=== PATIENT | male | born 2000 | race Caucasian/White ===

== ENCOUNTER 2024-12-05 00:08 | Emergency (ER) | payer MEDICAID, SELFPAY ==
[2024-12-05] VITALS (10 sets, daily range): BP systolic 124–162; BP diastolic 73–99; PULSE 61–84; RESP 13–18; TEMP 36.6; O2SAT 96–99; BMI 34.4
--- NOTE | 2024-12-05 00:07 | ECG_ITS ---
APPROVED REPORT Exam: Resting ECG HR:79 bpm ECG Measurements Heart Rate 79 AXES CA 215 P 40 QRSd 105 QRS 28 QT 349 T 33 QTc 384 Conclusion SINUS RHYTHM WITH FIRST DEGREE AV BLOCK No STEMI Electronically signed by : KARRIE MARK, 12/05/2024 04:23:23
--- NOTE | 2024-12-05 00:16 | XR_ITS ---
PROCEDURE INFORMATION: Exam: XR Chest Exam date and time: 12/05/2024 12:11 AM Age: 24 years old Clinical indication: Pain; Chest pressure; Additional info: Cp TECHNIQUE: Imaging protocol: Radiologic exam of the chest. Views: 2 views. COMPARISON: No relevant prior studies available. FINDINGS: Lungs: Minimal ill-defined bibasilar opacities. Pleural spaces: No pleural effusion. No pneumothorax. Heart/Mediastinum: No cardiomegaly. Bones/joints: Unremarkable. IMPRESSION: Minimal ill-defined bibasilar opacities, which may represent atelectasis, although aspiration/pneumonia can not be excluded
[2024-12-05 00:22] LABS: Hematocrit 42.7 % (42.0-52.0); Hemoglobin 14.7 g/dL (14.1-18.0); Immature Granulocytes % 0.4 %; Mean Corpuscular HGB Conc 34.4 g/dL (31.8-35.4); Mean Corpuscular Hemoglobin 31.6 pg (27.0-31.2); Mean Corpuscular Volume 91.8 fl (80-94); Nucleated Red Blood Cells % 0 %; Platelet Count 241 K/mm3 (142-424); Red Blood Count 4.65 M/mm3 (4.60-6.20); Red Cell Distribution Width-SD 41.9 fL; White Blood Count 8.3 K/mm3 (4.8-10.8)
[2024-12-05 00:23] LABS: Albumin Level 4.7 g/dl (3.5-5.0); Chloride 104 mmol/L (98-107)
[2024-12-05 00:24] LABS: Potassium 3.9 mmoL/L (3.5-5.1); Sodium 142 mmol/L (136-145)
[2024-12-05 00:26] LABS: Blood Urea Nitrogen 15 mg/dl (9-20); Creatinine Clearance Estimated 177 mL/min (50-200); Creatinine,Serum 0.90 mg/dl (0.66-1.25); Estimated Glomerular Filt Rate 103 ml/min (>60); GFR (African American) 124 ML/MIN (>60)
[2024-12-05 00:27] LABS: Alanine Aminotransferase 64 U/L (12-78); Albumin/Globulin Ratio 1.5 (1.1-1.8); Alkaline Phosphatase 56 U/L (38-126); Anion Gap 11.9 mEq/L (5-15); Aspartate Amino Transferase 30 U/L (17-59); Calcium 9.8 mg/dl (8.4-10.2); Carbon Dioxide 30 mmol/L (22.0-30.0); Globulin 3.1 g/dL (1.3-3.2); Glucose 102 mg/dl (74-100); Total Protein,Serum 7.8 g/dl (6.3-8.2)
[2024-12-05 00:29] LABS: INR 0.98 (0.9-1.1); Prothrombin Time 10.9 seconds (10.1-12.5)
--- OUTSIDE RECORDS SUMMARY | 2024-12-05 00:29 | XMS_ITS | Referral Summary ---
Author Organization [employer] ([place], [place], [place], [place]) Address [address] [place] [address] Care Team Providers Care Assistant Distribution Manager Name Role Phone Unavailable Primary Care Provider Unavailabl e Allergies No known active allergies Medications No known medications Active Problems Problem Noted Date Diagnosed Date Chest pain, unspecified type 03/04/2024 Social History Tobacco Use Types Packs/Day Years Used Date Smoking Tobacco: Every Day Cigarettes Smokeless Tobacco: Never Tobacco Cessation:Ready to Q uit: Not Asked; Counseling Given: Not Answered Alcohol Use Standard Drinks/Week Comments Yes 0 (1 standard drink = 0.6 oz pur e alcohol) socially Family and Community Support Answer Elbert e Recorded Help with Day to Day Activities Not on file 03/04/2024 Feeling Lonely or Isolated Not on file 03/04 Educational Attainment Answer Date Javid rded Speak language other than Yoruba at home Not on file 03/04/2024 Want help with school or training Not on file 03/04/2024 Substance Use Answer Date Recorded Used prescription meds for non-medical reasons N ot on file 03/04/2024 Used illegal drugs past 12 months Not on file 03/04/2024 Sex and Gender Information Value Date Recorded Sex Assigned at Not on file Legal Sex Male 7:53 PM CDT Gender Identity Not on file Sexual Orientation Not on file Last Filed Vital Signs Vital Sign Reading Time Taken Comments Blood Pressure 157/83 03/23/2024 4:06 PM EDT Pulse 85 03/23/2024 4:06 PM EDT Temperature 37.1 C (98.7 F) 03/23/2024 4:06 PM EDT Respiratory Rate 17 03/23/2024 4:06 PM EDT Oxygen Saturation 100% 03/23/2024 4:06 PM EDT Inhaled Oxygen Concentration - - Weight 99.8 kg (220 lb) 03/23/2024 4:06 PM EDT Height 170.2 cm (5' 7 ) 03/23/2024 4:06 PM EDT Body Mass Index 34.46 03/23/2024 4:06 PM EDT Plan of Treatment Not on file Insurance PASSPORT [facility] [place] [address]
--- OUTSIDE RECORDS SUMMARY | 2024-12-05 00:29 | XMS_ITS | Clinical Summary ---
Author Organization [employer] ([place], [place], [place], [place]) Address [address] [place] [address] Care Team Providers Care Residential Glazier Name Role Phone Unavailable Primary Care Provider [...] Date Javid rded Speak language other than Urdu at home Not on file 03/04/2024 Want [...] 03/23/2024 4:06 PM EDT Plan of Treatment Health Maintenance Due Date Last Done Comments Depression Screening (12+) 2011 Tobacco Cessation Counseling and Screening (12+) 2011 HIV Screening 2014 Hepatitis C Screening 2017 Pneumococcal Vaccine: 0-49 Y ears (1 of 2 - PCV) 2018 04/23/2001, 11/27/2000 Lipid Panel 2019 DTAP/TDAP/TD VACCINES (7 - T d or Tdap) 12/07/2021 12/08/2011, 04/08/2003, 10/27/2000, Additional history exists COVID-19 VACCINE ( - 2023-2 5 season) 2024 Influenza Vaccine (#1) 2025 Insurance [employer]SPORT [facility]
[2024-12-05 00:31] LABS: Bilirubin,Total 0.1 mg/dl (0.2-1.3)
[2024-12-05 00:39] LABS: Troponin I < 0.01 ng/ml (0.00-0.034)
[2024-12-05] MEDS: ASPIRIN 81MG CHEWABLE TABLET 324 MG PO (00:45)
--- NOTE | 2024-12-05 01:11 | HMH.EDCP ---
Discharge Plan Disposition Patient Disposition: Home, Self-Care Condition: Good Prescriptions Prescriptions: New famotidine 10 mg tablet 10 mg PO DAILY Qty: 14 0RF No Action omeprazole 20 mg capsule,delayed release(DR/EC) 20 mg PO BID Qty: 20 5RF Referrals Follow up/Referrals: Provider,Referral, [Primary Care Provider, Medical] - See instructions Activity Restrictions/Add. Instructions Additional Instructions/Restrictions: You were evaluated in the ER and are believed to be appropriate for discharge at this time. STOP taking the previously prescribed omeprazole (Prilosec) START taking the newly prescribed famotidine as directed. Drink plenty of water and eat a well-balanced diet. Follow-up with the cardiology clinic today 12/05/2024 at 9 AM for your appointment as directed. Also follow-up with your primary care doctor in a few days for reevaluation. Return to the ER with any new, worsening, or otherwise concerning symptoms. Clinical Impressions Clinical Impression: Chest pain Stand Alone Forms Stand Alone Forms: Work/School Release Print Language Print Language: Fijian Discharge ED Provider: Vale Tripathi General Chief Complaint: Chest Pain Stated Complaint: CHEST PAIN Time Seen by Provider: 12/05/24 00:10 Mode of Arrival: Ambulatory Source of Information: Patient Description of Symptoms (Recalled from ER Triage Doc. by RN): Patient has been having chest pain for 2-3 months; stated the pain tonight started around 11:30pm but he is not having pain now. States the pain tonight started off as a hot flash and light headed feeling, but when he laid down his chest started to hurt. When he is having pain, he states it is a sharp pain History of Present Illness HPI narrative: 24-year-old male presents to the ER with concern for 2 to 3 months of chest pain. Patient states it is episodic and he has previously been diagnosed with reflux/heartburn. He reports being on Pepcid but review of records demonstrates he is on omeprazole. He states he does take this daily. He states tonight his pain started around 1130 after laying down but now he is not having any pain since he has been upright and is in the ER. He states he did have hot flash and lightheaded feeling initially. He is asymptomatic with no nausea or vomiting, no headache or dizziness, no numbness, tingling, or weakness, he has no pain at this time. He states the pain was sharp/stabbing and only lasted for a few minutes. He does not have any chest pressure or difficulty breathing. No personal cardiac history. No fevers or chills, no cough or congestion, no other associated symptoms. Related Data Previous Rx's ?Medication ?Instructions ?Recorded omeprazole 20 mg capsule,delayed 20 mg PO BID #20 caps 07/24/24 release famotidine 10 mg tablet 10 mg PO DAILY #14 tabs 12/05/24 Allergies Allergy/AdvReac Type Severity Reaction Status Date / Time No Known Allergies Allergy Verified 07/24/24 12:59 [facility] Disclaimer: The information contained in this section may have been updated after the patient was seen, as this information can be updated by other users. Medical History (Updated 12/05/24 @ 03:40 by Vale Tripathi MD) No significant past medical history Surgical History (Updated 07/24/24 @ 13:00 by Geetha Salguero MA) No history of previous surgery Family History (Updated 07/24/24 @ 13:00 by Geetha Salguero MA) Other No significant family history Social History (Updated 07/24/24 @ 13:06 by Geetha Salguero MA) Smoking Status: Current every day smoker tobacco type: e-cigarettes alcohol intake: never substance use type: denies use current occupational status: unemployed Travel in the last 8 weeks?: None ROS Obtained: Yes Systems reviewed as appropriate & no additional complaints except as documented per HPI Physical Exam General General appearance: alert and in no apparent distress Head Head exam: atraumatic and normocephalic Eye Eye exam: Present PERRL and EOMI ENT ENT exam: Present mucous membranes moist Neck Neck exam: Present normal inspection and full ROM Chest Chest inspection: Present symmetric chest wall rise; Absent tenderness Respiratory Respiratory exam: Present normal lung sounds bilaterally; Absent respiratory distress, wheezes or stridor Cardiovascular Cardiovascular exam: Present regular rate and normal rhythm Abdominal Exam Abdominal exam: Present soft; Absent distention or tenderness Extremities Exam Extremities exam: Present full ROM; Absent edema Neurological Exam Neurological exam: Present alert, oriented X3 and normal gait; Absent motor sensory deficit Psychiatric Psychiatric exam: Present normal affect and normal mood Skin Skin exam: Present warm and dry HEART Score HEART Score HEART Score assessment performed?: Yes History (anamnesis): Slightly suspicious ECG: Normal Age: <45 years Risk factors: 1-2 risk factors Troponin: </= normal limit HEART Score: 1 Critical Care Critical Care Time Critical Care Time: No Medical Decision Making Medical Records Medical records reviewed: Yes I reviewed the patient's medical records. Phu Inquiry Pt receiving controlled substance: No Vital Signs Vital Signs: 12/05/24 00:13 12/05/24 00:17 12/05/24 00:30 Temperature 97.9 F Temperature Source Oral Pulse Rate 79 68 Pulse Rate [Right Radial] 78 Respiratory Rate 16 13 Blood Pressure 154/87 H Blood Pressure [Right Arm] 147/99 H Blood Pressure Mean [Right Arm] 115 Blood Pressure Source [Right Arm] Automatic Cuff Blood Pressure Position [Right Arm] Supine 02 Sat by Pulse Oximetry 99 96 Oxygen Delivery Method Room Air Room Air 12/05/24 01:00 12/05/24 01:30 12/05/24 02:01 Temperature Temperature Source Pulse Rate 68 84 68 Pulse Rate [Right Radial] Respiratory Rate 18 16 17 Blood Pressure 162/90 H 153/86 H 160/84 H Blood Pressure [Right Arm] Blood Pressure Mean [Right Arm] Blood Pressure Source [Right Arm] Blood Pressure Position [Right Arm] 02 Sat by Pulse Oximetry 98 98 97 Oxygen Delivery Method Room Air Room Air 12/05/24 02:30 12/05/24 03:00 12/05/24 03:30 Temperature Temperature Source Pulse Rate 70 61 Pulse Rate [Right Radial] Respiratory Rate 16 16 15 Blood Pressure 133/77 131/73 137/82 Blood Pressure [Right Arm] Blood Pressure Mean [Right Arm] Blood Pressure Source [Right Arm] Blood Pressure Position [Right Arm] 02 Sat by Pulse Oximetry 96 98 97 Oxygen Delivery Method Room Air Room Air Lab Data Labs: Lab Results 12/05/24 00:09: WBC 8.3, RBC 4.65, Hgb 14.7, Hct 42.7, MCV 91.8, MCH 31.6 H, MCHC 34.4, RDW 12.4, Plt Count 241, MPV 10.0, Neut % (Auto) 60.0, Lymph % (Auto) 26.7, [place] % (Auto) 9.0, Eos % (Auto) 3.2, Baso % (Auto) 0.7, Neut # (Auto) 5.0, Lymph # (Auto) 2.2, [place] # (Auto) 0.8, Eos # (Auto) 0.3, Baso # (Auto) 0.1, PT 10.9, INR 0.98, Sodium 142, Potassium 3.9, Chloride 104, Carbon Dioxide 30, Anion Gap 11.9, BUN 15, Creatinine 0.90, Estimated Creat Clear 177, Estimated GFR 103, Est GFR ( Amer) 124, Glucose 102 H, Calcium 9.8, Total Bilirubin 0.1 L, AST 30, ALT 64, Alkaline Phosphatase 56, Troponin I < 0.01, Total Protein 7.8, Albumin 4.7, Globulin 3.1, Albumin/Globulin Ratio 1.5, HCV Ab DEBBIE w/Rflx PCR Qn Negative, HIV Ag/Ab Combo Qual Negative 12/05/24 03:02: Troponin I < 0.01 12/05/24 00:09 12/05/24 00:09 Response Orders (Tests/Meds): ED MEDICATIONS Discontinued Medications Generic Name Dose Route Start Last Admin Trade Name Freq PRN Reason Stop Dose Admin Aspirin 324 mg 12/05/24 00:16 12/05/24 00:45 Aspirin 81mg Chewable Tablet PO 12/05/24 00:17 324 mg ONCE ONE Administration ORDERS Category Date Time Status XR chest 2V Stat Exams 12/05/24 00:16 Completed Complete Blood Count Auto Diff Stat Lab 12/05/24 00:09 Completed Comprehensive Metabolic Panel Stat Lab 12/05/24 00:09 Completed HIV Combo Stat Lab 12/05/24 00:09 Completed Hepatitis C Ab Qual. W/ RFX Stat Lab 12/05/24 00:09 Completed Prothrombin Time INR Stat Lab 12/05/24 00:09 Completed Troponin I Q3H Lab 12/05/24 03:02 Completed Troponin I Q3H Lab 12/05/24 06:30 Ordered Troponin I Stat Lab 12/05/24 00:09 Completed MDM Narrative Medical Decision Narrative: In summary, this 24-year-old male with comorbidities described in the HPI presents to the emergency department today with intermittent chest pains but asymptomatic on arrival. On initial evaluation patient is hemodynamically stable, afebrile, cardiopulmonary exam benign, overall exam is very reassuring with no reproducible chest pain, asymptomatic. Differential diagnosis includes but is not limited to ACS, I considered PE but patient is PERC negative, also considered with patient's history of reflux that he has reflux or peptic ulcer, also considered esophageal spasm, pneumothorax. Based on these concerns, I ordered serum labs, cardiac workup, chest x-ray. ECG personally interpreted demonstrates sinus rhythm with first-degree AV block, rate 79, CT 215, normal QTc, no STEMI or ischemic changes. Patient received aspirin for treatment. Labs personally reviewed demonstrate no leukocytosis or anemia, platelets normal, PT/INR normal, CMP nonactionable, troponin undetectably low less than 0.01. Patient was placed into ED observation at 0100 for serial troponin to rule out evolving RI and to preclude unnecessary admission. XR personally interpreted demonstrates no acute thoracic abnormality, see radiology read for final interpretation. Patient has remained on the coater brake linings and been frequently reassessed. He has had no concerning changes and his vital symptoms remained hemodynamically stable as well as pain-free on multiple reassessments. He is resting comfortably at this time with no symptoms. Repeat troponin also undetectably low less than 0.01. In the absence of any chest pain I believe patient is appropriate for discharge at this time with his reassuring ECG and labs. He is comfortable with this plan. I gave the patient the option of scheduling an outpatient follow-up appointment with cardiology versus having an appointment this morning at 9 AM. He would prefer to just get it done, so he was placed on the schedule for the 9 AM appointment with cardiology. He was provided an appointment card for this. Patient was given instructions on symptomatic management, I changed his prescription from omeprazole to famotidine since he states the medication he is currently on is not helping, he was given follow up instructions including instructions about the cardiology follow-up for this morning, and return precautions for the emergency department. Patient was also provided a note for work to be able to go to his cardiology appointment. Patient indicated understanding and was discharged in stable condition.
[2024-12-05 01:27] LABS: Hepatitis C Ab Qual. W/ RFX NEGATIVE (Negative)
[2024-12-05 03:31] LABS: Troponin I < 0.01 ng/ml (0.00-0.034)
== END 2024-12-05 03:49 | disposition home or self-care (01) ==
PROVIDERS: Emergency Provider Emergency Medicine
DX: R07.9 Chest pain, unspecified (principal); F17.210 Nicotine dependence, cigarettes, uncomplicated
CPT/HCPCS: 71046; 80053; 84484; 85025; 85610; 86803; 87389; 93005; 99285

== ENCOUNTER 2024-12-05 11:14 | Outpatient (CLI) | payer MEDICAID, SELFPAY ==
--- OUTSIDE RECORDS SUMMARY | 2024-12-05 11:20 | XMS_ITS | Referral Summary ---
Author Organization [id number] ([place], [place], [place], [place]) Address [address] [place] [address] Care Team Providers Care Hydraulic Controls Technician Name Role Phone Unavailable Primary Care Provider [...] Date Javid rded Speak language other than Chinese at home Not on file 03/04/2024 Want [...] of Treatment Not on file Insurance PASSPORT [facility]
--- OUTSIDE RECORDS SUMMARY | 2024-12-05 11:20 | XMS_ITS | Clinical Summary ---
Author Organization [employer] ([place], [place], [place], [place]) Address [address] [place] [address] Care Team Providers Care Apartment Maintenance Manager Name Role Phone Unavailable Primary Care [...] Date Javid rded Speak language other than Syriac at home Not on file 03/04/2024 Want [...] 2024 Influenza Vaccine (#1) 2025 Insurance [employer]SPORT [facility]
== END 2024-12-05 23:59 | disposition home or self-care (01) ==
LOC: RT 11:16
PROVIDERS: Visit Provider Physician Assistant
DX: I49.1 Atrial premature depolarization (principal); I49.3 Ventricular premature depolarization; I44.0 Atrioventricular block, first degree
CPT/HCPCS: 93270

== ENCOUNTER 2024-12-25 10:41 | Outpatient (CLI) | payer MEDICAID, SELFPAY ==
--- NOTE | 2024-12-25 | CA_ITS ---
APPROVED REPORT Exam: Exercise Treadmill Technologist: Kendra Farfan Ht: 5 ft 7 in Wt: 223 lbs BSA: 2.12 m2 Rhythm: NSR Medical History Medications: famotidine Stress Test Details Test: Exercise stress testing was performed using a Wade protocol. HR Resting HR: 86 bpm Max Heart Rate (APMHR): 195 bpm Max HR Achieved: 170 bpm Target HR (85% APMHR): 166 bpm % of APMHR: 87 Recovery HR: 116 bpm HR response to stress: Normal HR response to stress BP Resting BP: 135.0/78.0 mmHg Max BP: 180.0/85.0 mmHg Recovery BP: 151.0/94.0 mmHg BP response to stress: Normal blood pressure response to stress. ECG Resting ECG: Normal sinus rhythm Stress ECG: < 0.[address] depression Arrhythmia: None Clinical Exercise duration: 7.05 min Exercise capacity: 7.1 METs Overall Exercise Capacity for Age: Fair Stress ECG Conclusion Symptoms: None. Arrhythmias/Ectopy: None. ST-T Changes: < 0.[address] depression CONCLUSION Fair exercise capacity Good HR response at peak stress No evidence of ischemia on ECG at peak stress Electronically signed by : Alesha Mccann MD 12/26/2024 09:41:34
--- OUTSIDE RECORDS SUMMARY | 2024-12-25 10:45 | XMS_ITS | Clinical Summary ---
Author Organization [employer] ([place], [place], [place], [place]) Address [address] [place] [address] Care Team Providers Care Spanish Tutor Name Role Phone Unavailable Primary Care Provider [...] Date Javid rded Speak language other than Macanese at home Not on file 03/04/2024 Want [...] 2024 Influenza Vaccine (#1) 2025 Insurance [employer]ORT [facility]
--- OUTSIDE RECORDS SUMMARY | 2024-12-25 10:45 | XMS_ITS | Referral Summary ---
Author Organization [employer] ([place], [place], [place], [place]) Address [address] [place] [address] Care Team Providers Care Video Effects Editor Name Role Phone Unavailable Primary Care Provider [...] Date Javid rded Speak language other than Somali at home Not on file 03/04/2024 Want [...] of Treatment Not on file Insurance PASSPORT [facility]
--- NOTE | 2024-12-25 14:30 | CA_ITS ---
APPROVED REPORT EXAM: Comprehensive 2D, Doppler, and color-flow Echocardiogram [employer] Department Manager: Tamara Carranza CRT Ht: 5 ft 7 in Wt: 223lbs BSA: 2.12 BP: 126/80 mmHg Indications: Chest Pain, Shortness of Breath, Dizziness and Vertigo 2D Dimensions LA Volume 32.90 mL LA Volume Index 15.20 mL/m2 (M/F) 16-34 M-Mode Dimensions RVDd 2.22 cm (0.9-2.6) LA Diam 3.06 cm (1.9-4.0) LVDd 4.88 cm (3.5-5.7) LVDs 3.54 cm (3.5-5.7) IVSd 1.22 cm (0.6-1.1) PWd 0.94 cm (0.6-1.1) EF (Teich) 53.20% FS 27.50% EDV (Teich) 111.70 mL TAPSE 1.79 (<1.7) ESV (Teich) 52.30 mL LV Diastology E Decel Time 107 (160-240 msec) E/A Ratio 0.95 MED A' 7.00 cm/s LAT A' 8.90 cm/s Aortic Valve AO Peak GR. 7.30 mmHg Mitral Valve MV A Velocity 79.0 (40-130 cm/s) E/A Ratio 0.95 Pulmonary Valve PV Peak Velocity 76.0 (50-150 cm/s) Tricuspid Valve TR P. Velocity 229.00 cm/s RAP Estimate 10.00 mmHg RVSP 31.00 mmHg Left Ventricle The left ventricle is normal size. Left ventricular systolic function is normal. The left ventricular ejection fraction is within the normal range. There is normal left ventricular wall thickness. There is normal LV segmental wall motion. The left ventricular diastolic function is normal. LVEF is 55% Right Ventricle The right ventricle is normal size. The right ventricular systolic function is normal. Atria The left atrium size is normal. The right atrium size is normal. There is no color Doppler evidence of interatrial shunt. Aortic Valve The aortic valve opens well. There is no hemodynamically significant aortic valvular stenosis. No aortic regurgitation is present. Mitral Valve The mitral valve is normal in structure. No evidence of mitral valve stenosis. Trace mitral regurgitation is present. Tricuspid Valve The tricuspid valve leaflets are thin and pliable. Trace tricuspid regurgitation. There is insufficient TR jet to estimate RVSP. Pulmonic Valve The pulmonary valve is grossly normal in structure. Trace pulmonic valve regurgitation is present. Great Vessels The aortic root is normal in size. IVC is normal in size and collapses >50% with inspiration. Pericardium There is no pericardial effusion. Other Information Study Quality: Fair Conclusion Normal biventricular systolic function. No significant valvular stenosis or regurgitation. Electronically signed by : Alesha Mccann MD 12/25/2024 13:02:14
== END 2024-12-25 23:59 | disposition home or self-care (01) ==
LOC: RT 10:42
PROVIDERS: Visit Provider Physician Assistant
DX: I44.0 Atrioventricular block, first degree (principal); R06.02 Shortness of breath; R42 Dizziness and giddiness; R07.9 Chest pain, unspecified
CPT/HCPCS: 93016; 93017; 93018; 93306

== ENCOUNTER 2025-03-17 21:33 | Emergency (ER) | payer MEDICAID, SELFPAY ==
[2025-03-17 21:38] VITALS: BP 162/82; PULSE 98; RESP 18; TEMP 37.2; O2SAT 97; BMI 35.2
--- OUTSIDE RECORDS SUMMARY | 2025-03-17 21:54 | XMS_ITS | Clinical Summary ---
Author Organization [employer] ([place], [place], [place], [place]) Address [address] [place] [address] Care Team Providers Care Line Out Man Name Role Phone Unavailable Primary Care Provider [...] Date Javid rded Speak language other than Nigerian at home Not on file 03/04/2024 Want [...] COVID-19 VACCINE ( - 2023-2 5 season) 2025 Influenza Vaccine (#1) 2025 Insurance [employer]ORT [facility]
--- OUTSIDE RECORDS SUMMARY | 2025-03-17 21:54 | XMS_ITS | Referral Summary ---
Author Organization [employer] ([place], [place], [place], [place]) Address [address] [place] [address] Care Team Providers Care Clinical Documentation Consultant Name Role Phone Unavailable Primary Care Provider [...] Date Javid rded Speak language other than Haitian at home Not on file 03/04/2024 Want [...] of Treatment Not on file Insurance [employer]SPORT [facility]
[2025-03-17 22:02] VITALS: BP 154/77; PULSE 87; O2SAT 96
[2025-03-17 22:15] VITALS: PULSE 89; O2SAT 98
--- NOTE | 2025-03-17 22:25 | ED_ITS ---
Discharge Plan Disposition Patient Disposition: Home, Self-Care Prescriptions Prescriptions: New sulfamethoxazole-trimethoprim [Bactrim DS] 800-160 mg tablet 1 tab PO BID 7 Days Qty: 14 0RF No Action famotidine 10 mg tablet 10 mg PO DAILY Qty: 14 0RF Referrals Follow up/Referrals: Provider,Referral, [Primary Care Provider, Medical] - See instructions Activity Restrictions/Add. Instructions Additional Instructions/Restrictions: There is no clinical evidence of an indirect or direct inguinal hernia. You have a very small pustule likely secondary to an ingrown hair on your scrotum with a very small lymph node which is likely reactive secondary to this. Please return as discussed to the emergency department with any large bulge that may be concerning for hernia spreading redness in your scrotum high fevers or other concerns. I recommend you use warm compresses as discussed in addition to taking the antibiotics that we discussed. Clinical Impressions Clinical Impression: Skin pustule, Inguinal adenopathy Print Language Print Language: Croatian Discharge ED Provider: Kavitha Champion General Adult HPI General Chief complaint: PAIN Stated complaint: soreness/tenderness left side of groin Time Seen by Provider: 03/17/25 22:13 Mode of Arrival: Ambulatory Source of Information: Patient Description of Symptoms (Recalled from ER Triage Doc. by RN): Pt picked up the back of a zero turn lawnmower last monday and felt a pain in his left sided groin. Pt states pain has gotten worse since. History of Present Illness HPI narrative: 25-year-old male presents today with left groin pain. States that he first noticed this after he was lifting a lawnmower last Monday and about 24 hours later began to feel some swelling in his groin. Around the same time noticed a small pustule on the scrotum itself that is only been there for a few days. This bulge does not get worse with any type of Valsalva maneuver such as sitting up or lifting his legs up. He is having normal bowel movements and passing gas normally. No reducible mass that he is aware of. Related Data Previous Rx's ?Medication ?Instructions ?Recorded famotidine 10 mg tablet 10 mg PO DAILY #14 tabs 11/19 12/13 sulfamethoxazole 800 1 tab PO BID 7 days #14 tabs 03/17/25 mg-trimethoprim 160 mg tablet (Bactrim DS) Allergies Allergy/AdvReac Type Severity Reaction Status Date / Time No Known Allergies Allergy Verified 12/26/24 10:22 [facility] Disclaimer: The information contained in this section may have been updated after the patient was seen, as this information can be updated by other users. Medical History (Updated 03/17/25 @ 22:21 by Kavitha Champion MD) PVCs (premature ventricular contractions) PAC (premature atrial contraction) Sinus tachycardia Dizziness Former smoker First degree atrioventricular block by electrocardiogram SOB (shortness of breath) on exertion No significant past medical history Surgical History No history of previous surgery Family History Other No significant family history Social History Smoking Status: Current every day smoker tobacco type: e-cigarettes alcohol intake: never substance use type: denies use current occupational status: unemployed Travel in the last 8 weeks?: None Have you lived/traveled outside [place] in past 30 days?: No Contact w/someone who lives/traveled outside [place] past 30 days?: No Exposure to someone with infectious disease in past 14 days?: No Do you have a fever (greater than 100.4 F or 38 C)?: No Have you tested positive for COVID-19?: No Exposed to someone with COVID-19 in past 14 days?: No Do you have a sore throat?: No Do you have a cough?: No Do you have any weakness?: No Do you have any diarrhea?: No Are you experiencing any unusual bleeding?: No Do you have any muscle aches/pain?: No Do you have any abdominal pain?: No Are you experiencing loss of taste or smell?: No ROS Obtained: Yes All systems reviewed & no additional complaints except as documented Physical Exam General General appearance: alert and in no apparent distress Respiratory Respiratory exam: Present normal lung sounds bilaterally Cardiovascular Cardiovascular exam: Present regular rate Expanded Exam Comment: Patient has a very small pustule likely a ingrown hair with a very small reactive lymph node there is no evidence of any inguinal hernia including a direct or indirect inguinal hernia or reducible mass Neurological Exam Neurological exam: Present alert and oriented X3 Medical Decision Making Medical Records Screening: Per USPSTF and CDC recommendations, given the prevalence of disease in our region, it is our hospital?s policy to screen for HIV and viral Hepatitis for all patients aged 18 and over and those with ongoing risk factors. Phu Inquiry Pt receiving controlled substance: No Vital Signs: 03/17/25 21:38 03/17/25 22:02 03/17/25 22:02 Temperature 98.9 F Temperature Source Temporal Artery Scan Pulse Rate 87 Pulse Rate [Right] 98 H Respiratory Rate 18 Blood Pressure 154/77 H Blood Pressure [Right Arm] 162/82 H Blood Pressure Mean 102 Blood Pressure Mean [Right Arm] 108 Blood Pressure Source [Right Arm] Automatic Cuff Blood Pressure Position [Right Arm] Sitting 02 Sat by Pulse Oximetry 97 96 Oxygen Delivery Method Room Air 03/17/25 22:15 Temperature Temperature Source Pulse Rate 89 Pulse Rate [Right] Respiratory Rate Blood Pressure Blood Pressure [Right Arm] Blood Pressure Mean Blood Pressure Mean [Right Arm] Blood Pressure Source [Right Arm] Blood Pressure Position [Right Arm] 02 Sat by Pulse Oximetry 98 Oxygen Delivery Method Medical Decision Narrative: Patient has no clinical signs or symptoms of an inguinal hernia. The bulge that he was feeling appears to be very small lymph node that is adjacent to a pustule that is on the superior lateral aspect of the scrotum without any significant surrounding cellulitis. He notes that the pustules only been there for a few days. Nonetheless I am not concerned about an incarcerated or strangulated hernia. I see no evidence that this is reducible and that it is coming and going. It seems though the concern that he had is this very small lymph node reactive from this pustule. I have advised that he do warm compresses and have given him some antibiotics to as this is likely staph. Return precautions emphasized with regards to what to look for for an actual hernia specifically an incarcerated or strangulated hernia patient is discharged in stable condition. Critical Care Critical Care Time Critical Care Time: No
[2025-03-17 22:31] VITALS: BP 154/77; PULSE 86; RESP 16; TEMP 37.2; O2SAT 96
== END 2025-03-17 22:33 | disposition home or self-care (01) ==
PROVIDERS: Emergency Provider Student in an Organized Health Care Education/Training Program
DX: R59.0 Localized enlarged lymph nodes (principal); L08.9 Local infection of the skin and subcutaneous tissue, unspecified; F17.210 Nicotine dependence, cigarettes, uncomplicated
CPT/HCPCS: 99283